=== PATIENT | female | born 1995 | race Caucasian/White ===

== ENCOUNTER 2022-06-13 19:25 | Emergency (ER) | payer OTHER ==
[~2022-06-13 19:25] MED LIST: pre natal vit
== END 2022-06-13 20:43 | disposition home or self-care (01) ==
LOC: FER 19:25
DX: S83.422A Sprain of lateral collateral ligament of left knee, initial encounter (principal); F17.290 Nicotine dependence, other tobacco product, uncomplicated; Z88.8 Allergy status to other drugs, medicaments and biological substances; W51.XXXA Accidental striking against or bumped into by another person, initial encounter; Y92.89 Other specified places as the place of occurrence of the external cause; Y99.0 Civilian activity done for income or pay; Z28.310 Unvaccinated for COVID-19
CPT/HCPCS: 73560